=== PATIENT | female | born 1945 | race Hispanic/Latino ===

== ENCOUNTER 2017-09-09 13:48 | Outpatient (CLI) | payer MEDICARE ==
--- NOTE | 2017-09-09 14:35 | XRay Report ---
RIGHT HAND: History: Hand pain. The bony architecture is intact. Bony alignment is normal. No soft tissue abnormalities are seen. The joint spaces appear preserved. IMPRESSION: Normal right hand.
--- NOTE | 2017-09-09 14:36 | XRay Report ---
Left foot 3 views. History: Left foot pain. Findings: No fractures or other acute findings are seen. Mild diffuse osteopenia is present. Evidence of old fracture repairs of the malleoli are incidentally noted. Impression: No acute findings.
== END 2017-09-09 13:49 | disposition home or self-care (01) ==
LOC: SPVIMAG 13:48
PROVIDERS: ATTEND Orthopaedic Surgery Sports Medicine
DX: M85.872 Other specified disorders of bone density and structure, left ankle and foot (principal); M25.541 Pain in joints of right hand